=== PATIENT | male | born 1995 | race Caucasian/White ===

== ENCOUNTER 2025-02-02 17:59 | Emergency (ER) | payer SELFPAY ==
[2025-02-02 18:04] VITALS: BP 139/84; PULSE 64; TEMP 36.9; O2SAT 98; BMI 24.4
--- NOTE | 2025-02-02 18:25 | PC.NURSE ---
no redness, bruising or swelling to spine area where pt c/o pain, skin is intact. pt c/o left leg numbness that just started, ambulates with strong steady gait. no limping or dragging of the left leg.
--- NOTE | 2025-02-02 18:45 | ED.BACK1 ---
HPI HPI - Back Pain/Injury General Chief Complaint: Back Pain/Injury Stated Complaint: BACK PAIN 6 DAY Time Seen by Provider: 02/02/25 18:10 Source: patient Mode of arrival: walk-in History of Present Illness HPI Narrative: The patient have a history of kyphosis presenting to the ER with a left sided back pain he mentioned that the pain goes mostly down to the hip area, he mentioned that this started almost 6 days ago there was no history of any fall or trauma He does not carry anything heavy but sometimes he does a lot of walking and sitting in his job The patient denies any weakness in the lower extremity although he mentioned having some numbness in the dorsum of the left foot that he noticed after waking up 6 days ago, the patient is able to move the foot with no difficulty no weakness in the lower extremity no incontinence of urine or stool Related Data Previous Rx's ?Medication ?Instructions ?Recorded diclofenac sodium 75 mg 75 mg PO BID PRN pain #20 tabs 02/02/25 tablet,delayed release orphenadrine citrate 100 mg 100 mg PO ONCE PRN muscle spasm 02/02/25 tablet,extended release #10 tabs prednisone 20 mg tablet 40 mg (2 x 20 mg) PO DAILY 5 days 02/02/25 #10 tabs Allergies Allergy/AdvReac Type Severity Reaction Status Date / Time No Known Drug Allergies Allergy Verified 02/02/25 18:10 Review of Systems ROS Status of ROS 10 or more systems reviewed and unremarkable except as noted in history and below PFSH PFSH Social History Little interest or pleasure in doing things: not at all Feeling down, depressed, or hopeless: not at all Exam Narrative Exam Narrative: Nurses notes and vital signs reviewed and patient is not hypoxic. General: Well-appearing and in no apparent distress. Skin: Warm, dry, no pallor noted. No rash. Head: Normocephalic, atraumatic. Neck: Supple, non-tender. Eye: Pupils are equal, round and EOMI. No scleral icterus. Ears, Nose, Mouth, and Throat: TM are clear, no nasal mucosal hypertrophy. Oral mucosa is moist, no posterior oropharynx erythema, uvula is mid-line Cardiovascular: Regular Rate and Rhythm without murmur, gallop or rub. Respiratory: No accessory muscle use or respiratory distress. Lungs are clear to auscultation, no wheezing, rales or rhonchi Chest Wall: no tenderness Back: No midline thoracic or lumbar vertebral tenderness. No CVA tenderness there is only left paraspinal muscle tenderness mostly in the upper lumbar level, and the patient mentioned that he had some decree sensation in the dorsum of the left foot although the plantar and dorsal flexion are normal in the left ankle and the patient woke with no difficulty Musculoskeletal: normal ROM, no calf or popliteal tenderness, no lower extremity edema/swelling GI: Abdomen is soft, non-distended. Normal bowel sounds. No masses appreciated. No tenderness to palpation. No rebound, guarding, or rigidity noted. Neurological: A&O x4. No cranial nerve dysfunction observed. No truncal ataxia. Moves all extremities. Psychiatric: Cooperative and interactive. Normal mood and affect. Constitutional Vital Signs, click to edit/add: Last Vital Signs Temp 98.5 F 02/02/25 18:04 Pulse 64 02/02/25 18:04 Resp 18 02/02/25 18:04 BP 139/84 02/02/25 18:04 Pulse Ox 98 02/02/25 18:04 O2 Del Method Room Air 02/02/25 18:04 Course Vital Signs Vital signs: Vital Signs Temperature 98.5 F 02/02/25 18:04 Pulse Rate 64 02/02/25 18:04 Respiratory Rate 18 02/02/25 18:04 Blood Pressure 139/84 02/02/25 18:04 Pulse Oximetry 98 02/02/25 18:04 Oxygen Delivery Method Room Air 02/02/25 18:04 Temperature 98.5 F 02/02/25 18:04 Pulse Rate 64 02/02/25 18:04 Respiratory Rate 18 02/02/25 18:04 Blood Pressure 139/84 02/02/25 18:04 Pulse Oximetry 98 02/02/25 18:04 Oxygen Delivery Method Room Air 02/02/25 18:04 MDM - Back Pain/Injury MDM Narrative Medical decision making narrative: Right now the patient pain could be secondary back strain especially that the patient have no alarming symptoms The patient was instructed about being started on prednisone and Voltaren as well as Norflex with instruction that he need to monitor for any new symptoms and there should be resolution of his symptoms Regarding the numbness in the dorsum of the left foot it was inconsistent with his back pain only and I did explain to her that could be due to her peripheral neuropathy and pressure on the nerve, but right now there is no weakness and no alarming symptoms The patient was started on Toradol in the ER discharged home with prednisone Norflex and Voltaren with instruction to come back in case any worsening of symptoms The patient is to follow up with primary care physician in next 2-3 days or to return to the emergency department should any of the signs or symptoms worsen or new symptoms develop. The patient agrees with the following Diagnosis and Treatment plan and the patient will be discharged home. Discharge Plan Discharge Chief Complaint: Back Pain/Injury Clinical Impression: Strain of lumbar region Patient Disposition: Home, Self-Care Time of Disposition Decision: 18:48 Condition: Good Prescriptions / Home Meds: New orphenadrine citrate 100 mg tablet extended release 100 mg PO ONCE PRN (Reason: muscle spasm) Qty: 10 0RF prednisone 20 mg tablet 40 mg PO DAILY 5 Days Qty: 10 0RF diclofenac sodium 75 mg tablet,delayed release (DR/EC) 75 mg PO BID PRN (Reason: pain) Qty: 20 0RF Print Language: [place] Instructions: Peripheral Neuropathy (ED), Back Pain (ED) Referrals: Physician,Non-Staff, MD [Primary Care Provider] - 1 week
[2025-02-02] MEDS: KETOROLAC TROMETHAMINE 30 MG/ML VIAL IM (18:47)
== END 2025-02-02 18:58 | disposition home or self-care (01) ==
PROVIDERS: Emergency Provider Emergency Medicine
DX: S39.012A Strain of muscle, fascia and tendon of lower back, initial encounter (principal); X58.XXXA Exposure to other specified factors, initial encounter
CPT/HCPCS: 96372; 99284; J1885